=== PATIENT | male | born 1975 | race Caucasian/White ===

== ENCOUNTER 2021-07-23 12:59 | Emergency (ER) | payer BC, OTHER ==
[2021-07-23 13:05] VITALS: BP 125/71; PULSE 91; TEMP 98; BMI 35.7
[2021-07-23] MEDS ORDERED: IBUPROFEN 600 MG TABLET (FP) PO ONE ×2 (13:58→14:06)
== END 2021-07-23 14:20 | disposition home or self-care (01) ==
LOC: FER 12:59
DX: S29.012A Strain of muscle and tendon of back wall of thorax, initial encounter (principal); X50.0XXA Overexertion from strenuous movement or load, initial encounter
CPT/HCPCS: 99283-25

== ENCOUNTER 2022-09-27 07:00 | Emergency (ER) | payer OTHER ==
[2022-09-27 07:21] VITALS: BP 120/80; PULSE 86; RESP 19; TEMP 98.1; BMI 39.5
[2022-09-27] MEDS ORDERED: ACETAMINOPHEN 500 MG TABLET (FP) PO ONE (07:48)
== END 2022-09-27 09:44 | disposition home or self-care (01) ==
LOC: JER 07:00
DX: M79.672 Pain in left foot (principal); W10.8XXA Fall (on) (from) other stairs and steps, initial encounter; W22.8XXA Striking against or struck by other objects, initial encounter; Y99.0 Civilian activity done for income or pay
CPT/HCPCS: 73610-TC-LT-FY; 73630-TC-LT; 99283-25

== ENCOUNTER 2024-07-20 08:25 | Emergency (ER) | payer OTHER, BC ==
[2024-07-20 08:41] VITALS: BP 133/88; PULSE 95; RESP 19; TEMP 97.9; BMI 42.5
[2024-07-20] MEDS ORDERED: DIPHTH,PERTUSS(ACELL),TET 0.5 ML DISP.SYRIN IM ONE (08:55)
[2024-07-20] MEDS: DIPHTH,PERTUSS(ACELL),TET 0.5 ML DISP.SYRIN IM ONE (09:00)
== END 2024-07-20 11:32 | disposition home or self-care (01) ==
LOC: JER 08:25
PROC: 3E0234Z Introduction of Serum, Toxoid and Vaccine into Muscle, Percutaneous Approach (ICD-10-PCS; principal; 2024-07-20)
DX: S91.332A Puncture wound without foreign body, left foot, initial encounter (principal); Z23 Encounter for immunization; W45.0XXA Nail entering through skin, initial encounter; Y99.0 Civilian activity done for income or pay
CPT/HCPCS: 73630-TC-LT; 90715; 99284-25